=== PATIENT | male | born 1965 | race Asian ===

== ENCOUNTER 2019-09-09 10:45 | Outpatient (CLI) | payer OTHER | END 2019-09-09 20:10 | disposition home or self-care (01) | LOC: RAD 10:45 | DX: M19.012 Primary osteoarthritis, left shoulder (principal) ==

== ENCOUNTER 2020-04-16 09:56 | Outpatient (CLI) | payer OTHER ==
[2020-04-16 10:19] LABS: PLATELET COUNT 256 K/uL (142-355)
[2020-04-16 10:48] LABS: POTASSIUM 4.1 mmol/L (3.6-5.2)
== END 2020-04-16 20:38 | disposition home or self-care (01) ==
LOC: LAB 09:56
PROVIDERS: Internal Medicine
DX: I10 Essential (primary) hypertension (principal); E66.9 Obesity, unspecified
CPT/HCPCS: 80053; 80061; 81000; 84439; 84443; 85027

== ENCOUNTER 2021-01-19 12:27 | Outpatient (CLI) | payer OTHER ==
[2021-01-19 12:47] LABS: PLATELET COUNT 255 K/uL (142-355)
[2021-01-19 13:49] LABS: POTASSIUM 4.8 mmol/L (3.6-5.2)
== END 2021-01-19 21:02 | disposition home or self-care (01) ==
LOC: LAB 12:27
PROVIDERS: ATTEND Internal Medicine
DX: I10 Essential (primary) hypertension (principal); E66.9 Obesity, unspecified; E79.0 Hyperuricemia without signs of inflammatory arthritis and tophaceous disease; S81.801D Unspecified open wound, right lower leg, subsequent encounter; Z79.899 Other long term (current) drug therapy
CPT/HCPCS: 80053; 80061; 83036; 84439; 84443; 84550; 85027; 85652

== ENCOUNTER 2021-08-04 11:21 | Emergency (ER) | payer OTHER ==
[~2021-08-04] VITALS: Ht 193 cm; Wt 254.1 kg
[2021-08-04 11:57] LABS: PLATELET COUNT 273 K/uL (142-355)
[2021-08-04 12:05] LABS: POTASSIUM 3.8 mmol/L (3.6-5.2)
[2021-08-04 17:00] VITALS: BP 161/90; TEMP 97.9
== END 2021-08-04 17:00 | disposition home or self-care (01) ==
LOC: ED 11:21
PROVIDERS: Emergency Medicine
DX: I73.9 Peripheral vascular disease, unspecified (principal); L03.116 Cellulitis of left lower limb; L03.115 Cellulitis of right lower limb; E66.01 Morbid (severe) obesity due to excess calories; I10 Essential (primary) hypertension
CPT/HCPCS: 80048; 83880; 85027; 96372; 99283; J0696; J1885